=== PATIENT | female | born 1955 | race African-American/Black ===

== ENCOUNTER 2022-02-16 07:26 | Day surgery (SDC) | payer BC ==
[2022-02-14 15:33] VITALS: BMI 26.4
[2022-02-16] MEDS ORDERED: PROPOFOL 120 ML ONE (08:05)
[2022-02-16] MEDS ORDERED: LIDOCAINE HCL/PF 2% SDV 5ML VIAL ONE (08:05)
[2022-02-16 09:46] VITALS: BP 124/72; PULSE 71; RESP 18; TEMP 97.8
== END 2022-02-16 10:24 | disposition home or self-care (01) ==
LOC: FASU-ENDO 07:26
PROVIDERS: ATTEND Internal Medicine Gastroenterology
PROC: 0DB68ZX Excision of Stomach, Via Natural or Artificial Opening Endoscopic, Diagnostic (ICD-10-PCS; 2022-02-16)
PROC: 0DB48ZX Excision of Esophagogastric Junction, Via Natural or Artificial Opening Endoscopic, Diagnostic (ICD-10-PCS; 2022-02-16)
PROC: 0DB98ZX Excision of Duodenum, Via Natural or Artificial Opening Endoscopic, Diagnostic (ICD-10-PCS; principal; 2022-02-16 09:26)
DX: K29.50 Unspecified chronic gastritis without bleeding (principal); K20.90 Esophagitis, unspecified without bleeding; B96.81 Helicobacter pylori [H. pylori] as the cause of diseases classified elsewhere; R10.13 Epigastric pain
CPT/HCPCS: 88305-TC; 88342-TC

== ENCOUNTER → 2022-03-01 | Day surgery (SDC) | payer BC | END | disposition home or self-care (01) | LOC: JRADIR 10:02 | PROVIDERS: ATTEND Internal Medicine Gastroenterology | PROC: 0G9K3ZX Drainage of Thyroid Gland, Percutaneous Approach, Diagnostic (ICD-10-PCS; principal; 2022-03-01) | DX: E04.1 Nontoxic single thyroid nodule (principal); Z53.8 Procedure and treatment not carried out for other reasons | CPT/HCPCS: 76536-TC ==

== ENCOUNTER → 2024-09-07 | Day surgery (SDC) | payer OTHER, BC | END | disposition home or self-care (01) | LOC: JRADIR 10:33 | PROVIDERS: ATTEND Internal Medicine Gastroenterology | PROC: 0GBG3ZX Excision of Left Thyroid Gland Lobe, Percutaneous Approach, Diagnostic (ICD-10-PCS; principal; 2024-09-07) | DX: E06.3 Autoimmune thyroiditis (principal); E04.2 Nontoxic multinodular goiter | CPT/HCPCS: 10005; 76942; 88173; 88305-TC ==